=== PATIENT | female | born 1940 | race Caucasian/White ===

== ENCOUNTER 2017-08-13 09:12 | Emergency (ER) | payer MEDICARE, BC, SELFPAY | END 2017-08-13 09:45 | disposition home or self-care (01) | PROVIDERS: Emergency Provider Nurse Practitioner Family; Family Provider Family Medicine; Visit Provider Nurse Practitioner Family | DX: J09.X2 Influenza due to identified novel influenza A virus with other respiratory manifestations (principal) | CPT/HCPCS: 87804; 99201 ==

== ENCOUNTER → 2017-12-14 09:01 | Outpatient (POV) | payer MEDICARE, BC, SELFPAY | PROVIDERS: Visit Provider Dentist | DX: Z00.00 Encounter for general adult medical examination without abnormal findings (principal) ==

== ENCOUNTER → 2018-05-09 12:42 | Outpatient (CLI) | payer MEDICARE, SELFPAY ==
--- NOTE | 2018-05-09 13:10 | XR_ITS ---
XR DEXA axial skeleton HISTORY: ITS.REASON: POST MENOPAUSAL ORDERING PHYSICIAN: Jorgito Nayak MD PATIENT AGE: 78 years COMPARISON: 03/02/2016 FINDINGS: The BMD measured at the Total left femoral neck is 0.661 g/cm squared with a T score of -2.8. This is considered Osteoporotic according to the World Health Organization criteria. Fracture risk is High. Treatment is advised. The L1 L4 density has a T score of -2.7 consistent with osteoporosis and has increased by 7% compared to the previous study. The hip density has increased by 4%. The scanogram images show moderate lumbar scoliosis convex left IMPRESSION: Osteoporosis with high fracture risk. Treatment recommended. Recommend follow-up exam April 2019 placed on these results
== END ==
PROVIDERS: Family Provider Family Medicine; PCP Family Medicine; Visit Provider Family Medicine
DX: Z78.0 Asymptomatic menopausal state (principal); M81.0 Age-related osteoporosis without current pathological fracture
CPT/HCPCS: 77080

== ENCOUNTER → 2019-04-18 12:59 | Outpatient (CLI) | payer MEDICARE, SELFPAY ==
--- NOTE | 2019-04-18 13:04 | XR_ITS ---
PROCEDURE: XR DEXA AXIAL SKELETON CLINICAL HISTORY: OSTEOPAROSIS COMPARISON: No exams were available for comparison FINDINGS: Lumbar spine (L1 through L4), BMD 0.824, T-score -3.0 There is moderate lumbar spine levoscoliosis with degenerative changes causing false elevation of the bone density measurement at L2 and L3 levels. Left hip (Total), BMD 0.676, T-score -2.6 IMPRESSION: Osteoporosis. 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 Dictated by: Tammy Blankenship 05/23/2019 10:00 Electronically signed by Juan Antonio Dixon in [place] 05/23/2019 13:34
== END ==
PROVIDERS: PCP Family Medicine; Visit Provider Family Medicine
DX: M81.0 Age-related osteoporosis without current pathological fracture (principal)
CPT/HCPCS: 77080

== ENCOUNTER 2021-04-17 11:05 | Emergency (ER) | payer MEDICARE, SELFPAY ==
[2021-04-17 11:31] VITALS: BP 137/62; PULSE 58; RESP 18; TEMP 36.8; O2SAT 96; BMI 22.8
--- NOTE | 2021-04-17 11:36 | XR_ITS ---
PROCEDURE INFORMATION: Exam: XR Right Ankle Exam date and time: 04/17/2021 11:36 AM Age: 81 years old Clinical indication: Swelling or effusion of joint; Foot TECHNIQUE: Imaging protocol: XR Right ankle. Views: 3 or more views. COMPARISON: CR XR FOOT RT MIN 3V 04/17/2021 11:34 AM FINDINGS: Bones/joints: Medial and lateral malleoli are normal. Ankle mortise is symmetrical. No fracture. Hindfoot is unremarkable. Tibiotalar joint and subtalar joint normal. Soft tissues: Normal. IMPRESSION: Normal ankle.
--- NOTE | 2021-04-17 11:36 | XR_ITS ---
PROCEDURE INFORMATION: Exam: XR Right Foot Exam date and time: 04/17/2021 11:36 AM Age: 81 years old Clinical indication: Swelling or effusion of joint; Foot TECHNIQUE: Imaging protocol: XR Right foot. Views: 3 or more views. COMPARISON: CR [id number] KNEE-3 [id number]-RT 12/16/2014 12:23 PM FINDINGS: Bones/joints: Hindfoot-midfoot and midfoot-forefoot articulations normal. Metatarsals and phalanges without an acute process. Subtalar and tibiotalar joint normal. Mild degenerative changes at the first metatarsal phalangeal joint. Mild soft tissue swelling about the joint space medially. Soft tissues: See Bones/joints finding. IMPRESSION: Mild degenerative changes at the first metatarsal phalangeal joint. Mild soft tissue swelling about the joint space medially.
--- NOTE | 2021-04-17 12:24 | HMH.EDUTC ---
[facility] [place] Disposition Clinical Impression: Right foot pain Disposition: Home, Self-Care Condition on Discharge: Good Additional Instructions: Rest the extremity, Elevate the extremity as tolerated while you are resting. Take the oral steroids (medrol dose pack) as directed Follow up with Dr. Recinos (podiatry) if you are not getting better pretty fast (2 to 3 days). I put in a referral but you will need to call his office and schedule an appointment. Follow up with your regular doctor. GO TO THE ER FOR ANY WORSENING SYMPTOMS Prescriptions: methylPREDNISolone [Medrol] 4 mg PO DIRECTED 6 Days #21 tab.ds.pk Transmission Status: Received by [id number] Referrals: Julia Yusuf MD [Primary Care Provider] - Meghana Recinos DPM [Staff Physician] - Time of Disposition: 12:31 Medical Decision Making - Medical Records Medical records reviewed: No: I reviewed the patient's medical records. - Rasheed Inquiry Pt receiving controlled substance: No Vital Signs: 04/17/21 11:31 04/17/21 12:33 Temperature 98.2 F 98.2 F Temperature Source Oral Pulse Rate 58 L Pulse Rate [Left] 58 L Respiratory Rate 18 16 Blood Pressure 137/62 Blood Pressure [Right Arm] 137/62 Blood Pressure Mean [Right Arm] 87 02 Sat by Pulse Oximetry 96 - Radiology Data #1 Image(s): Foot/Toes Image Reviewed: Yes I reviewed the patient's radiology image, Yes I have reviewed radiologist's interpretation Preliminary Findings: No Fracture Seen PROCEDURE INFORMATION: Exam: XR Right Foot Exam date and time: 04/17/2021 11:36 AM Age: 81 years old Clinical indication: Swelling or effusion of joint; Foot TECHNIQUE: Imaging protocol: XR Right foot. Views: 3 or more views. COMPARISON: CR [id number] KNEE-3 [id number]-RT 12/16/2014 12:23 PM FINDINGS: Bones/joints: Hindfoot-midfoot and midfoot-forefoot articulations normal. Metatarsals and phalanges without an acute process. Subtalar and tibiotalar joint normal. Mild degenerative changes at the first metatarsal phalangeal joint. Mild soft tissue swelling about the joint space medially. Soft tissues: See Bones/joints finding. IMPRESSION: Mild degenerative changes at the first metatarsal phalangeal joint. Mild soft tissue swelling about the joint space medially. Medical Decision Narrative: She refused the possibility that this could be cellulitis or infection. She refused any antibiotics at this time. She is going to f/u with her pcp if its not getting better with the steroids. [facility] [place] HPI - General Stated complaint: swollen rt foot Time Seen by Provider: 04/17/21 12:24 Mode of Arrival: Ambulatory Source of Information: Patient Limitations: No Limitations Description of Symptoms (Recalled from Triage Doc. by RN): pt went for a walk last monday, afterwards her R foot was swollen and painful. pt has not had any relief. HEENT Symptoms (Recalled from RN notes): No Resp Symptoms (Recalled from RN notes): No Skin Symptoms (Recalled from RN notes): No MS Symptoms (Recalled from RN notes): Yes (R foot swelling and pain) Functional Status (Recalled from RN notes): na - History of Present Illness Provider Complaint: She states that since last night she has had right foot pain and tenderness. She denies any injury. She denies fever or chills. She is currently taking amoxicillin after having some dental work done last week. - Related Data Previous Rx's Medication Instructions Recorded methylPREDNISolone [Medrol] 4 mg PO DIRECTED 6 Days #21 04/17/21 tab.[email or web address] Allergies Allergy/AdvReac Type Severity Reaction Status Date / Time No Known Allergies Allergy Verified 08/31/19 06:29 - Worker's Comp Is this a Worker's Comp case?: No [facility] History - Hepatitis A Screen Drug use history?: No High risk sexual behaviors?: No History of sexually transmitted infecti
[2021-04-17 12:33] VITALS: BP 137/62; PULSE 58; RESP 16; TEMP 36.8
== END 2021-04-17 12:34 | disposition home or self-care (01) ==
PROVIDERS: Emergency Provider Nurse Practitioner Family; PCP Family Medicine
DX: M79.671 Pain in right foot (principal); R60.0 Localized edema
CPT/HCPCS: G0463; 73610; 73630; 99202

== ENCOUNTER → 2021-05-10 15:55 | Outpatient (CLI) | payer MEDICARE, SELFPAY ==
--- NOTE | 2021-05-10 16:03 | XR_ITS ---
PROCEDURE: XR CHEST PORTABLE CLINICAL HISTORY: COVID OUTPATIENT COMPARISON: CR XR CHEST 2V from 08/31/2019 FINDINGS: The cardiomediastinal silhouette and pulmonary vascularity are within normal limits. COPD changes with mild prominence of the interstitium. Slight increased markings in the left mid lung zone suggesting an area of atelectasis with possible perihilar infiltrate. Thoracolumbar scoliosis convex left IMPRESSION: COPD with chronic changes with minimal atelectasis in the left midlung with possible perihilar infiltrate Dictated by: Galo Morel MD 05/10/2021 17:30 Galo Morel MD in [place] 05/10/2021 17:30
[2021-05-10 16:27] LABS: Adenovirus,PCR Not Detected (NotDetected); Bordetella Pertussis Not Detected (NotDetected); Chlamydophila Pneumoniae, PCR Not Detected (NotDetected); Coronavirus 19, PCR Not Detected (NotDetected); Coronavirus 229E Not Detected (NotDetected); Coronavirus NL63 Not Detected (NotDetected); Coronavirus OC43 Not Detected (NotDetected); Coronovirus HKU1,PCR Not Detected (NotDetected); Human Metapneumovirus Not Detected (NotDetected); Influenza A, PCR Not Detected (NotDetected); Influenza AH1, 2009 Not Detected (NotDetected); Influenza AH1, PCR Not Detected (NotDetected); Influenza AH3,PCR Not Detected (NotDetected); Influenza B, PCR Not Detected (NotDetected); Mycoplasma Pneumoniae, PCR Not Detected (NotDetected); Parainfluenza 1, PCR Not Detected (NotDetected); Parainfluenza 2, PCR Not Detected (NotDetected); Parainfluenza 3, PCR Not Detected (NotDetected); Parainfluenza 4, PCR Not Detected (NotDetected); Respiratory Syncytial Virus Not Detected (NotDetected); Rhinovirus/Enterovirus Not Detected (NotDetected)
== END ==
PROVIDERS: PCP Family Medicine; Visit Provider Family Medicine
DX: Z20.822 Contact with and (suspected) exposure to COVID-19 (principal); J45.41 Moderate persistent asthma with (acute) exacerbation
CPT/HCPCS: 71045; 87581; 87632; 87798; C9803; U0003; U0005

== ENCOUNTER → 2021-05-26 09:15 | Outpatient (CLI) | payer MEDICARE, SELFPAY ==
--- NOTE | 2021-05-26 | CA_ITS ---
APPROVED REPORT EXAM: Comprehensive 2D, Doppler, and color-flow Echocardiogram Senior Vice President: Rocio Hernadez CRT Ht: 5 ft 2 in Wt: 129lbs BSA: 1.59 BP: 110/70 mmHg Indications: Shortness of Breath, Fatigue 2D Dimensions LVOT 2.00 cm (M/F) 1.5-2.5 LA Volume 29.70 mL LA Volume Index 18.70 mL/m2 (M/F) 16-34 M-Mode Dimensions RVDd 2.25 cm (0.9-2.6) LA Diam 2.22 cm (1.9-4.0) LVDd 3.71 cm (3.5-5.7) Ao Diam 3.77 cm (2.0-3.7) LVDs 2.43 cm (3.5-5.7) IVSd 1.12 cm (0.6-1.1) PWd 1.00 cm (0.6-1.1) EF (Teich) 64.40% FS 34.50% EDV (Teich) 58.50 mL TAPSE 2.01 (<1.7) ESV (Teich) 20.80 mL LV Diastology E Decel Time 187.00 (160-240 msec) E/A Ratio 0.60 MED E' 5.20 (< 7 cm/sec) MED A' 14.40 cm/s E'/MED E' Ratio 10.77 (>14) LAT E' 6.50 (<10 cm/sec) LAT A' 16.40 cm/s E/LAT E' Ratio 8.62 (>14) Aortic Valve AO Peak GR. 4.30 mmHg Mitral Valve MV A Velocity 93.00 (40-130 cm/s) E/A Ratio 0.60 MV Decel. Time 187.00 (160-240 ms) Pulmonary Valve PV Peak Velocity 126.00 (50-150 cm/s) Tricuspid Valve TR P. Velocity 269.00 cm/s RAP Estimate 10.00 mmHg RVSP 38.90 mmHg Left Ventricle Left atrium is mildly enlarged, left ventricle is normal size, left ventricle wall thickness is upper limit of the normal, septum is sigmoid configuration, visually estimated ejection fraction 55% with no regional wall motion abnormality, grade 1 diastolic dysfunction seen without tissue Doppler evidence of raise left atrial pressure. Right Ventricle Right atrium and right ventricle are normal size and contractility. Aortic Valve Aortic valve is trileaflet, there is no aortic stenosis or aortic insufficiency. Mitral Valve Mitral valve is grossly normal, there is trace mitral regurgitation. Tricuspid Valve Tricuspid grossly normal, there is trace tricuspid regurgitation, calculated right ventricular systolic pressure within normal range. Pulmonic Valve Pulmonic valve is poorly visualized. Great Vessels Aortic root is mildly enlarged measuring 3.8 cm. Inferior vena cava is poorly visualized. Pericardium No significant pericardial effusion noted. Conclusion 1. Mildly enlarged left atrium, normal left ventricular size, visually estimated ejection fraction 55% with no regional wall motion abnormality, grade 1 diastolic dysfunction seen without tissue Doppler evidence of raise left atrial pressure. 2. Mildly enlarged aortic root, there is no aortic stenosis or aortic insufficiency. 3. Trace mitral and tricuspid regurgitation. 4. No significant pericardial effusion noted. 5. Inferior vena cava is poorly visualized. Electronically signed by : Vic Bills MD 05/27/2021 11:33:25
== END ==
PROVIDERS: PCP Family Medicine; Visit Provider Family Medicine
DX: R06.02 Shortness of breath (principal)
CPT/HCPCS: 93306

== ENCOUNTER 2021-09-04 15:51 | Emergency (ER) | payer MEDICARE, SELFPAY ==
[2021-09-04] VITALS (8 sets, daily range): BP systolic 107–119; BP diastolic 55–73; PULSE 78–95; RESP 14–23; TEMP 36.6–36.9; O2SAT 94–98; BMI 22.8
--- NOTE | 2021-09-04 16:04 | XR_ITS ---
PROCEDURE INFORMATION: Exam: XR Chest Exam date and time: 09/04/2021 4:04 PM Age: 81 years old Clinical indication: Shortness of breath; Additional info: SOA TECHNIQUE: Imaging protocol: XR of the chest. Views: 1 view. COMPARISON: CR XR CHEST PORTABLE 05/10/2021 4:28 PM FINDINGS: Lungs: Atelectasis and/or early infiltrative changes noted within both lung bases. Pleural spaces: There is no evidence of pneumothorax. There are no pleural effusions present. Heart/Mediastinum: Unremarkable. No cardiomegaly. Bones/joints: Unremarkable. IMPRESSION: Atelectasis and/or early infiltrative changes noted within both lung bases.
--- NOTE | 2021-09-04 16:04 | ECG_ITS ---
APPROVED REPORT Exam: Resting ECG HR:95 bpm ECG Measurements Heart Rate 95 AXES LA 172 P 35 QRSd 76 QRS -54 QT 320 T 23 QTc 402 Conclusion Normal sinus rhythm Left anterior fascicular block Moderate voltage criteria for LVH, may be normal variant Nonspecific T wave abnormality Abnormal ECG Electronically signed by : Jorgito Smart MD 09/05/2021 08:31:12
[2021-09-04 16:44] LABS: Basophils # 0.1 K/mm3 (0-0.2); Eosinophils # 0.2 K/mm3 (0.0-0.4); Eosinophils % 1.9 % (0.1-12.0); Hematocrit 44.1 % (37.0-47.0); Hemoglobin 14.3 g/dL (12.2-16.2); Lymphocytes # 2.2 K/mm3 (0.7-4.5); Mean Corpuscular HGB Conc 32.5 g/dL (31.8-35.4); Mean Corpuscular Hemoglobin 32.8 pg (27.0-31.2); Mean Platelet Volume 8.3 fl (7.4-10.4); Monocytes # 1.2 K/mm3 (0.1-1.0); Monocytes % 9.5 % (1.7-9.3); Neutrophils # 8.5 K/mm3 (1.8-7.8); Neutrophils % 69.7 % (37.0-80.0); Platelet Count 360 K/mm3 (142-424); Red Blood Count 4.37 M/mm3 (4.20-5.40); Red Cell Distribution Width 13.1 % (11.5-17.5); White Blood Count 12.2 K/mm3 (4.8-10.8)
[2021-09-04 16:50] LABS: Alanine Aminotransferase 19 U/L (12-78); Albumin Level 4.2 g/dl (3.5-5.0); Albumin/Globulin Ratio 1.2 (1.1-1.8); Alkaline Phosphatase 80 U/L (38-126); Anion Gap 10.7 mEq/L (5-15); Aspartate Amino Transferase 33 U/L (14-36); Bilirubin,Total 0.3 mg/dl (0.2-1.3); Blood Urea Nitrogen 15 mg/dl (7-17); Calcium 9.7 mg/dl (8.4-10.2); Carbon Dioxide 28 mmol/L (22.0-30.0); Chloride 100 mmol/L (98-107); Creatinine Clearance Estimated 39 mL/min (50-200); Estimated Glomerular Filt Rate 96 ml/min (>60); GFR (African American) 116 ML/MIN (>60); Globulin 3.4 g/dL (1.3-3.2); Glucose 134 mg/dl (74-100); Potassium 3.7 mmoL/L (3.5-5.1); Sodium 135 mmol/L (136-145); Total Protein,Serum 7.6 g/dl (6.3-8.2)
[2021-09-04 16:50] LABS: Lipase 90 U/L (23-300)
[2021-09-04 17:11] LABS: Troponin I < 0.01 ng/ml (0.00-0.034)
--- NOTE | 2021-09-04 18:10 | HMH.EDGENADL ---
ED Disposition Clinical Impression: Dyspnea on exertion Disposition: Home, Self-Care Condition on Discharge: Good Additional Instructions: Please continue to monitor your condition closely at home. If your condition worsens or any other concerns arise, please return to the emergency department. Otherwise, please follow-up with Dr. Yusuf on an outpatient basis. Referrals: Julia Yusuf MD [Primary Care Provider] - - Critical Care Critical Care Time: No Attestation: On 09/04/21, the high probability of a clinically significant, sudden or life threatening deterioration of the following system(s) required my full and direct attention, intervention and personal management. The time I documented below is in addition to time spent performing reported procedures but includes the following listed in this critical care notation. Medical Decision Making - Medical Records Medical records reviewed: Yes: I reviewed the patient's medical records. - Rasheed Inquiry Pt receiving controlled substance: No Vital Signs: 09/04/21 15:52 09/04/21 17:13 09/04/21 17:30 Temperature 98 F Temperature Source Oral Pulse Rate 88 82 Pulse Rate [Radial] 78 Respiratory Rate 16 16 15 Blood Pressure 111/63 108/60 L Blood Pressure [Right Arm] 119/73 Blood Pressure Mean 75 79 Blood Pressure Mean [Right Arm] 88 02 Sat by Pulse Oximetry 98 96 96 Oxygen Delivery Method Room Air 09/04/21 18:00 09/04/21 18:30 09/04/21 19:00 Temperature Temperature Source Pulse Rate 83 80 85 Pulse Rate [Radial] Respiratory Rate 16 18 14 Blood Pressure 111/61 107/55 L 118/66 Blood Pressure [Right Arm] Blood Pressure Mean 72 68 Blood Pressure Mean [Right Arm] 02 Sat by Pulse Oximetry 96 95 94 L Oxygen Delivery Method Room Air 09/04/21 19:30 Temperature Temperature Source Pulse Rate 90 Pulse Rate [Radial] Respiratory Rate 23 Blood Pressure 115/61 Blood Pressure [Right Arm] Blood Pressure Mean Blood Pressure Mean [Right Arm] 02 Sat by Pulse Oximetry 94 L Oxygen Delivery Method Room Air - Lab Data Lab results reviewed: Yes: I reviewed the patient's lab results. Lab Results 09/04/21 15:47: Lipase 90 09/04/21 15:59: WBC 12.2 H, RBC 4.37, Hgb 14.3, Hct 44.1, MCV 101.0 H, MCH 32.8 H, MCHC 32.5, RDW 13.1, Plt Count 360, MPV 8.3, Neut % (Auto) 69.7, Lymph % (Auto) 18.0, L[place]kin % (Auto) 9.5 H, Eos % (Auto) 1.9, Baso % (Auto) 1.0, Neut # (Auto) 8.5 H, Lymph # (Auto) 2.2, L[place]kin # (Auto) 1.2 H, Eos # (Auto) 0.2, Baso # (Auto) 0.1 09/04/21 15:59: Sodium 135 L, Potassium 3.7, Chloride 100, Carbon Dioxide 28, Anion Gap 10.7, BUN 15, Creatinine 0.60, Estimated Creat Clear 39, Estimated GFR 96, Est GFR ( Amer) 116, Glucose 134 H, Calcium 9.7, Total Bilirubin 0.3, AST 33, ALT 19, Alkaline Phosphatase 80, Troponin I < 0.01, Total Protein 7.6, Albumin 4.2, Globulin 3.4 H, Albumin/Globulin Ratio 1.2 09/04/21 15:59: D-Dimer 0.57 H 09/04/21 15:59: NT-Pro-B Natriuret Pep 42.4 Result diagrams: 09/04/21 15:59 09/04/21 15:59 Orders (Tests/Meds): ED MEDICATIONS Discontinued Medications Generic Name Dose Route Start Last Admin Trade Name Freq PRN Reason Stop Dose Admin Morphine Sulfate 4 mg 09/04/21 16:12 09/04/21 16:36 Morphine 8mg/Ml Syringe IV 09/04/21 16:13 Not Given ONCE ONE Ondansetron HCl 4 mg 09/04/21 16:13 09/04/21 16:36 Ondansetron 4mg/2ml Vial IV 09/04/21 16:14 Not Given ONCE ONE ORDERS Category Date Time Status Rapid PCR Covid and Flu A/B Stat Lab 09/04/21 19:43 Ordered Troponin I Q3H Lab 09/04/21 17:38 Received Troponin I Q3H Lab 09/04/21 22:15 Ordered Medical Decision Narrative: Patient is an 81-year-old female presenting with a chief complaint of dyspnea on exertion for the past several months and tachycardia. Differential diagnosis includes, but is not limited to, COVID-19, pulmonary embolus, pneumonia, ACS, CHF, pulmonary hypertension. Initial exam, p
[2021-09-04 18:33] LABS: D-Dimer 0.57 ug/mL (0.0-0.5)
[2021-09-04 18:38] LABS: NT Pro Brain Natriuretic Pep. 42.4 pg/mL (0-450)
--- NOTE | 2021-09-04 18:46 | PC.NURSE ---
PT UPDATED ON PLAN OF CARE
--- NOTE | 2021-09-04 19:47 | PC.NURSE ---
Pt refused nasal swab stating I've heard of to many false-negatives and false-positives and I don't think I have COVID. This RN explained to pt that MD requested a swab but she could not be forced to be swabbed although it is recommended.
[2021-09-04 20:32] LABS: Troponin I < 0.01 ng/ml (0.00-0.034)
== END 2021-09-04 20:20 | disposition home or self-care (01) ==
PROVIDERS: Emergency Provider Emergency Medicine; PCP Family Medicine
DX: J06.9 Acute upper respiratory infection, unspecified (principal)
CPT/HCPCS: 36415; 71045; 80053; 83690; 83880; 84484; 85025; 85378; 93005; 99283

== ENCOUNTER → 2021-09-28 10:19 | Outpatient (CLI) | payer MEDICARE, SELFPAY ==
--- NOTE | 2021-09-28 10:27 | XR_ITS ---
FINAL REPORT CLINICAL HISTORY: COVID TESTING COMPARISON: September 04, 2021 FINDINGS: The heart size is normal. The mediastinum is normal. There are persistent but partially improved pulmonary opacities likely representing improved pneumonia. There are no pleural effusions. There is no pneumothorax. There is S-shaped scoliosis. IMPRESSION: Persistent but partially improved pulmonary opacities likely representing improved pneumonia. Reviewed, Interpreted and Dictated by Nagi Chand III, MD Transcribed by Joaquin Kovacs Authenticated by Nagi Chand III, MD on 09/28/2021 01:49:54 PM [facility]
== END ==
PROVIDERS: PCP Family Medicine; Visit Provider Family Medicine
DX: U07.1 COVID-19 (principal); J44.1 Chronic obstructive pulmonary disease with (acute) exacerbation
CPT/HCPCS: 71045; C9803; U0003; U0005

== ENCOUNTER → 2021-12-28 13:05 | Outpatient (CLI) | payer MEDICARE, SELFPAY ==
[2021-12-28 13:45] VITALS: PULSE 80; PULSE 87
--- NOTE | 2021-12-28 14:54 | CT_ITS ---
FINAL REPORT TECHNIQUE: Axial images were obtained from the lung apex to the mid abdomen by computed tomography. Coronal reformatted images were obtained. This study was performed with techniques to keep radiation doses as low as reasonably achievable, (ALARA). Individualized dose reduction techniques using automated exposure control or adjustment of mA and/or kV according to the patient''s size were employed. CLINICAL HISTORY: ILD..checking for copd or emphysema FINDINGS: CT CHEST W/O CONTRAST There is no axillary adenopathy. There is no hilar or mediastinal adenopathy. Heart size is normal. There is no pericardial or pleural effusion. Limited images of the upper abdomen are unremarkable. There is moderate, predominantly peripheral, interstitial fibrosis. There is no evidence of bronchiectasis or emphysema. IMPRESSION: Moderate interstitial fibrosis. No evidence of bronchiectasis or emphysema. Reviewed, Interpreted and Dictated by Nagi Chand III, MD Transcribed by Milli Corral Authenticated by Nagi Chand III, MD on 12/28/2021 04:39:15 PM [facility]
== END ==
PROVIDERS: PCP Internal Medicine Adolescent Medicine; Visit Provider Internal Medicine Pulmonary Disease
DX: R06.02 Shortness of breath (principal)
CPT/HCPCS: 71250; 94060; 94618; 94640; 94727; 94729

== ENCOUNTER → 2021-12-30 09:26 | Outpatient (CLI) | payer MEDICARE, SELFPAY ==
--- NOTE | 2021-12-30 09:51 | XR_ITS ---
FINAL REPORT TECHNIQUE: Bone densitometry calculations of the lumbar spine and left hip were obtained. CLINICAL HISTORY: .post menopausal COMPARISON: April 18, 2019 FINDINGS: DEXA BONE DENSITY AXIAL SKELETON Using L1-4, the bone mineral density of the spine is 0.672 g/cm2, corresponding to T-score of -3.4. Previous bone mineral density was 0.824 g/cm2 with a T-score of -3.0. Using the left hip, the bone mineral density of the femoral neck is 0.545 g/cm2, corresponding to a T-score of -3.3. Previous bone mineral density was 0.700 g/cm2 with a T-score of -2.4. NOTE: T-score: Standard deviation compared with peak bone mass of young adult mean. *Following the recommendations of the International Society of Bone Densitometry, classification of hip BMD is based on the lower of two T-scores; total hip or femoral neck. IMPRESSION: Osteoporosis: Lowest T-score is at or below -2.5. This patient's T-score meets the World Health Organization criteria for osteoporosis. Reviewed, Interpreted and Dictated by Nagi Chand III, MD Transcribed by Kendra Weaver Authenticated by Nagi Chand III, MD on 12/30/2021 03:25:[address] [facility]
== END ==
PROVIDERS: PCP Family Medicine; Visit Provider Internal Medicine Adolescent Medicine
DX: M81.0 Age-related osteoporosis without current pathological fracture (principal)
CPT/HCPCS: 77080

== ENCOUNTER → 2022-01-27 12:11 | Outpatient (CLI) | payer MEDICARE, SELFPAY ==
[2022-01-27 14:16] LABS: Uric Acid 4.9 mg/dl (2.5-6.2)
[2022-01-27 14:22] LABS: C-Reactive Protein 1.9 mg/L (0-4)
[2022-01-27 14:28] LABS: Erythrocyte Sedimentation Rate 17 mm/hr (0-30)
[2022-01-28 12:36] LABS: RA Latex Turbid. <10.0 IU/mL (<14.0)
[2022-01-28 13:12] LABS: Anti-Centromere B Antibodies <0.2 AI (0.0-0.9); Anti-DNA (DS) Ab Qn 9 IU/mL (0-9)
[2022-01-28 17:22] LABS: Antinuclear Antibodies, IFA Negative (.); Cytoplasmic (C-ANCA) <1:20 titer (Neg:<1:20); Perinuclear (P-ANCA) <1:20 titer (Neg:<1:20)
[2022-02-01 01:07] LABS: Anti-Cyclic Citrullinated Pept 12 units (0-19)
[2022-02-01 16:22] LABS: Strongyloides IgG Antibody Negative (Negative)
[2022-02-06 21:00] LABS: Aspergillus fumigatus IgG NEGATIVE; Pigeon Serum Abs NEGATIVE
== END ==
PROVIDERS: PCP Internal Medicine Adolescent Medicine; Visit Provider Internal Medicine Pulmonary Disease
DX: J84.9 Interstitial pulmonary disease, unspecified (principal); D72.19 Other eosinophilia; R06.00 Dyspnea, unspecified
CPT/HCPCS: 36415; 84550; 85651; 86038; 86140; 86200; 86225; 86235; 86256; 86331; 86431; 86602; 86606; 86609; 86682

== ENCOUNTER → 2022-04-28 14:22 | Outpatient (CLI) | payer MEDICARE, SELFPAY ==
--- NOTE | 2022-04-28 14:22 | CT_ITS ---
FINAL REPORT TECHNIQUE: Axial images were obtained from the lung apex to the mid abdomen by computed tomography utilizing a high-resolution protocol. Supine inspiration, supine expiration and prone inspiration images were obtained. Coronal reformatted images were obtained. This study was performed with techniques to keep radiation doses as low as reasonably achievable, (ALARA). Individualized dose reduction techniques using automated exposure control or adjustment of mA and/or kV according to the patient's size were employed. CLINICAL HISTORY: soa with exertion , HR CHEST x3 COMPARISON: December 28, 2021 FINDINGS: There is no axillary adenopathy. There is no hilar or mediastinal adenopathy. Heart size is normal. There is a moderate hiatal hernia. There is no pericardial or pleural effusion. Limited images of the upper abdomen are unremarkable. There are moderate peripheral interstitial opacities consistent with moderate interstitial fibrosis. There are patchy peripheral ground-glass opacities, greatest in the upper lobes, which are visually stable. No area of air trapping is identified on the expiration images. The appearance is stable since the prior exam. There is no new abnormality. IMPRESSION: Moderate peripheral fibrosis, stable. Reviewed, Interpreted and Dictated by Nagi Chand III, MD Transcribed by Milli Corral Authenticated and [facility]
== END ==
PROVIDERS: PCP Internal Medicine Adolescent Medicine; Visit Provider Internal Medicine Pulmonary Disease
DX: J84.9 Interstitial pulmonary disease, unspecified (principal); R06.09 Other forms of dyspnea
CPT/HCPCS: 71250

== ENCOUNTER → 2022-05-31 13:17 | Outpatient (POV) | payer MEDICARE, SELFPAY | PROVIDERS: Visit Provider Dermatology | DX: Z00.00 Encounter for general adult medical examination without abnormal findings (principal) ==

== ENCOUNTER → 2022-06-21 14:05 | Outpatient (POV) | payer MEDICARE, SELFPAY | PROVIDERS: Visit Provider Dermatology | DX: Z00.00 Encounter for general adult medical examination without abnormal findings (principal) ==

== ENCOUNTER → 2022-07-27 10:01 | Outpatient (CLI) | payer MEDICARE, SELFPAY | PROVIDERS: PCP Internal Medicine Adolescent Medicine; Visit Provider Internal Medicine Pulmonary Disease | DX: R06.09 Other forms of dyspnea (principal) | CPT/HCPCS: 94060; 94618; 94726; 94729 ==

== ENCOUNTER → 2022-08-04 14:48 | Outpatient (CLI) | payer MEDICARE, SELFPAY ==
--- NOTE | 2022-08-04 15:06 | XR_ITS ---
FINAL REPORT CLINICAL HISTORY: SOB COMPARISON: September 28, 2021 FINDINGS: Two views of the chest were obtained. The heart size and pulmonary vascularity are within normal limits. The mediastinum is normal. There is mild scarring/fibrosis. There is no pneumothorax. The bony thorax is intact. IMPRESSION: Mild scarring/fibrosis. Reviewed, Interpreted and Dictated by Nagi Chand III, MD Transcribed by Milli Corral Authenticated and . [facility]
[2022-08-04 16:07] LABS: Lactate Dehydrogenase 210 U/L (313-618)
[2022-08-04 16:13] LABS: C-Reactive Protein 1.3 mg/L (0-4)
[2022-08-09 15:37] LABS: Strongyloides IgG Antibody Negative (Negative)
[2022-08-10 11:45] LABS: D001-IgE D pteronyssinus <0.10 kU/L (Class 0); D002-IgE D farinae <0.10 kU/L (Class 0); E001-IgE Cat Dander <0.10 kU/L (Class 0); E005-IgE Dog Dander <0.10 kU/L (Class 0); E072-IgE Mouse Urine <0.10 kU/L (Class 0); G002-IgE Bermuda Grass <0.10 kU/L (Class 0); G006-IgE Timothy Grass <0.10 kU/L (Class 0); I006-IgE Cockroach, German <0.10 kU/L (Class 0); Immunoglobulin E, Total 77 IU/mL (6-495); M001-IgE Penicillium chrysogen <0.10 kU/L (Class 0); M002-IgE Cladosporium herbarum <0.10 kU/L (Class 0); M003-IgE Aspergillus fumigatus <0.10 kU/L (Class 0); M006-IgE Alternaria alternata <0.10 kU/L (Class 0); T001-IgE Maple/Box Elder <0.10 kU/L (Class 0); T003-IgE Common Silver Birch <0.10 kU/L (Class 0); T006-IgE Cedar, Mountain 9.37 kU/L (Class IV); T007-IgE Oak, White <0.10 kU/L (Class 0); T008-IgE Elm, American <0.10 kU/L (Class 0); T010-IgE Walnut <0.10 kU/L (Class 0); T011-IgE Maple Leaf Sycamore <0.10 kU/L (Class 0); T014-IgE Cottonwood <0.10 kU/L (Class 0); T015-IgE Ash, White <0.10 kU/L (Class 0); T022-IgE Pecan, Hickory <0.10 kU/L (Class 0); T070-IgE White Mulberry <0.10 kU/L (Class 0); W001-IgE Ragweed, Short <0.10 kU/L (Class 0); W011-IgE Thistle, Russian <0.10 kU/L (Class 0); W014-IgE Pigweed, Common <0.10 kU/L (Class 0); W018-IgE Sheep Sorrel <0.10 kU/L (Class 0)
[2022-08-10 19:34] LABS: Aspergillus flavus Negative (Neg:<1:1); Aspergillus fumigatus Negative (Neg:<1:1); Aspergillus niger Negative (Neg:<1:1); Blastomyces Antibody Negative (Neg:<1:1)
== END ==
PROVIDERS: PCP Internal Medicine Adolescent Medicine; Visit Provider Internal Medicine Pulmonary Disease
DX: J30.9 Allergic rhinitis, unspecified (principal); J84.10 Pulmonary fibrosis, unspecified; J84.89 Other specified interstitial pulmonary diseases; J84.9 Interstitial pulmonary disease, unspecified; D72.19 Other eosinophilia; R06.09 Other forms of dyspnea; R06.02 Shortness of breath
CPT/HCPCS: 36415; 71046; 82785; 83615; 86003; 86140; 86606; 86612; 86682; 87070; 87205

== ENCOUNTER → 2022-08-05 14:24 | Outpatient (CLI) | payer MEDICARE, SELFPAY ==
--- NOTE | 2022-08-05 14:31 | CT_ITS ---
FINAL REPORT TECHNIQUE: Axial imaging of the chest was obtained without contrast. Reformatted images were also obtained and reviewed.This study was performed with techniques to keep radiation doses as low as reasonably achievable, (ALARA). Individualized dose reduction technique using automated exposure control or adjustment of mA and/or kV according to the patient's size were employed. CLINICAL HISTORY: SOA COMPARISON: 04/28/2022 FINDINGS: There is a small hiatal hernia. There is no axillary adenopathy. There is no hilar or mediastinal mass or adenopathy. Heart size is normal. There is no pericardial or pleural effusion. There is moderate, peripheral interstitial fibrosis which is stable from prior exam. Mild right upper lobe and left upper lobe bronchiectasis and ground-glass opacities are also stable. Limited imaging of the upper abdomen demonstrate a small hiatal hernia. IMPRESSION: Stable, moderate fibrosis , ground-glass opacities and bronchiectasis. Reviewed, Interpreted and Dictated by Nagi Chand III, MD Transcribed by Faviola Hagen Authenticated and [facility]
== END ==
PROVIDERS: PCP Internal Medicine Adolescent Medicine; Visit Provider Internal Medicine Pulmonary Disease
DX: J84.89 Other specified interstitial pulmonary diseases (principal); J84.9 Interstitial pulmonary disease, unspecified
CPT/HCPCS: 71250

== ENCOUNTER → 2022-08-16 15:09 | Outpatient (CLI) | payer MEDICARE, SELFPAY | PROVIDERS: Visit Provider Internal Medicine Pulmonary Disease | DX: J84.89 Other specified interstitial pulmonary diseases (principal) | CPT/HCPCS: 87070; 87077; 87205 ==

== ENCOUNTER → 2022-11-04 14:46 | Outpatient (CLI) | payer MEDICARE, SELFPAY ==
--- NOTE | 2022-11-04 14:50 | CA_ITS ---
APPROVED REPORT EXAM: Comprehensive 2D, Doppler, and color-flow Echocardiogram [employer]cery [employer] Associate: Rocio Hernadez CRT Ht: 5 ft 2 in Wt: 126lbs BSA: 1.57 BP: 128/66 mmHg Indications: Shortness of Breath, tachycardia, pulmonary fibrosis 2D Dimensions LVOT 1.67 cm (M/F) 1.5-2.5 M-Mode Dimensions RVDd 1.93 cm (0.9-2.6) LA Diam 3.04 cm (1.9-4.0) LVDd 3.69 cm (3.5-5.7) Ao Diam 3.63 cm (2.0-3.7) LVDs 2.46 cm (3.5-5.7) IVSd 1.28 cm (0.6-1.1) PWd 0.56 cm (0.6-1.1) EF (Teich) 63.00% FS 33.30% EDV (Teich) 57.80 mL TAPSE 1.33 (<1.7) ESV (Teich) 21.40 mL LV Diastology E Decel Time 193.00 (160-240 msec) E/A Ratio 0.63 MED E' 4.30 (< 7 cm/sec) MED A' 7.10 cm/s E'/MED E' Ratio 15.35 (>14) LAT E' 4.60 (<10 cm/sec) LAT A' 20.70 cm/s E/LAT E' Ratio 14.35 (>14) Aortic Valve AO Peak GR. 6.30 mmHg Mitral Valve MV E Max Ronnie. 66.00 (40-130 cm/s) MV A Velocity 104.00 (40-130 cm/s) E/A Ratio 0.63 MV Decel. Time 193.00 (160-240 ms) MV PHT 57.00 ms Pulmonary Valve PV Peak Velocity 169.00 (50-150 cm/s) Tricuspid Valve TR P. Velocity 300.00 cm/s RAP Estimate 10.00 mmHg RVSP 46.10 mmHg Left Ventricle Left atrium is mildly enlarged, left ventricle is normal size mild concentric left ventricular hypertrophy, estimated ejection fraction 55% with no regional wall motion abnormality. Grade 1 diastolic dysfunction seen without tissue Doppler evidence of raise left atrial pressure. Right Ventricle Right atrium and right ventricular normal size and contractility. Aortic Valve Aortic valve is minimally thickened and fibrosed there is no aortic stenosis or aortic insufficiency. Mitral Valve Mitral valve is grossly normal, there is trace mitral regurgitation. Tricuspid Valve Tricuspid grossly normal, there is trace tricuspid regurgitation, tricuspid regurgitation jet plus is inadequate for calculation of the right ventricular systolic pressure. Pulmonic Valve Pulmonic valve is poorly visualized. Great Vessels Aortic root is normal size. Inferior vena cava is normal size with normal inspiratory collapse. Pericardium No significant pericardial effusion noted. There is an extracardiac mass seen in around left atrium this is likely a hiatal hernia. Conclusion 1. Normal left ventricular size mild concentric left ventricular hypertrophy, estimated ejection fraction 55% with no regional wall motion abnormality, grade 1 diastolic dysfunction seen without tissue Doppler evidence of late left atrial pressure. 2. Trace mitral and tricuspid regurgitation. 3. No significant pericardial effusion noted. 4. There is an extracardiac mass seen around left atrium this likely represents a hiatal hernia. 5. Inferior vena cava is normal size with normal inspiratory collapse. Electronically signed by : Vic Bills MD 11/06/2022 10:38:37
== END ==
PROVIDERS: PCP Obstetrics & Gynecology; Visit Provider Internal Medicine Adolescent Medicine
DX: R00.0 Tachycardia, unspecified (principal); R94.31 Abnormal electrocardiogram [ECG] [EKG]
CPT/HCPCS: 93306

== ENCOUNTER → 2022-12-28 08:02 | Outpatient (CLI) | payer MEDICARE, SELFPAY ==
[2022-12-28 09:40] VITALS: PULSE 67; PULSE 73
== END ==
PROVIDERS: PCP Internal Medicine Adolescent Medicine; Visit Provider Internal Medicine Pulmonary Disease
DX: R06.00 Dyspnea, unspecified (principal)
CPT/HCPCS: 94060; 94618; 94640; 94727; 94729

== ENCOUNTER 2023-02-22 14:06 | Emergency (ER) | payer MEDICARE, SELFPAY ==
[2023-02-22 14:06] VITALS: BP 110/71; PULSE 74; RESP 16; TEMP 36.4; O2SAT 96; BMI 21.9
--- NOTE | 2023-02-22 14:27 | XR_ITS ---
FINAL REPORT CLINICAL HISTORY: fall today , wrist pain and swelling FINDINGS: Right wrist Three views were obtained. There is a comminuted, impaction fracture of the distal radius. There is dorsal angulation of the distal fracture fragments. Soft tissue swelling is seen. IMPRESSION: Comminuted, impacted fracture of the distal radius. Reviewed, Interpreted and Dictated by Nagi Chand III, MD Transcribed by Kelly Aguilera Authenticated and [facility]
--- NOTE | 2023-02-22 14:30 | HMH.EDUPEXT ---
Discharge Plan Disposition Patient Disposition: Home, Self-Care Prescriptions Prescriptions: New naproxen 375 mg tablet 375 mg PO BID Qty: 30 0RF No Action cholecalciferol (vitamin D3) 25 mcg (1,000 unit) capsule 25 mcg PO DAILY blue-green algae (Spirulina) 500 mg capsule 380 mg PO DAILY garlic 580 mg capsule 1 mg PO DAILY fluticasone propionate [Flonase Allergy Relief] 50 mcg/actuation spray,suspension 1 spray intranasal BID PRN (Reason: allergy symptoms) 90 Days Qty: 16 3RF Rx Instructions: administer into each nostril Premarin 0.625 mg/gram cream 0.625 mg VAGINAL .twice weekly Qty: 30 4RF Rx Instructions: 1/2 gram twice weekly as directed by aspirin [Adult Low Dose Aspirin] 81 mg tablet,delayed release (DR/EC) 81 mg PO DAILY magnesium glycinate-mag oxide 120 mg magnesium capsule PO .prn multivitamin [Daily Multi-Vitamin] Tablet 1 tab PO DAILY calcium carbonate 500 mg calcium (1,250 mg) tablet 500 mg PO DAILY zinc gluconate 50 mg tablet 50 mg PO DAILY vitamin K2 100 mcg capsule 100 mcg PO DAILY ascorbic acid (vitamin C) 500 mg tablet 500 mg PO DAILY Referrals Follow up/Referrals: Jorgito Smart MD [Primary Care Provider] - See instructions Clinical Impressions Clinical Impression: Closed fracture of right distal radius Discharge ED Provider: Seth Betancourt Upper Extremity HPI General Chief Complaint: Extremity Injury, Upper Stated Complaint: Fall 7/5 RT wrist pain Time Seen by Provider: 02/22/23 14:30 Mode of Arrival: Ambulatory Source of Information: Patient Limitations: No Limitations Description of Symptoms (Recalled from ER Triage Doc. by RN): pt to ED with right wrist pain [place] pt has limited ROM but +PMS. pt denies any head/neck injury of LOC or blood thinners History of Present Illness HPI narrative: 83-year-old white female tripped and fell backwards catching herself with her right hand with immediate pain and deformity of her right wrist. Patient may have osteoporosis but takes no medication and reports she has no medical problems. Her chart indicates some asthma pulmonary fibrosis her medication list is mostly directed and allergies and osteoporosis Related Data Home Medications Medication Instructions Recorded Confirmed aspirin 81 mg tablet,delayed 81 mg PO DAILY 12/08/21 12/28/22 release (Adult Low Dose Aspirin) ascorbic acid (vitamin C) 500 mg 500 mg PO DAILY 05/30/22 12/28/22 tablet calcium carbonate 500 mg calcium 500 mg PO DAILY 05/30/22 12/28/22 (1,250 mg) tablet multivitamin (Daily Multi-Vitamin 1 tab PO DAILY 05/30/22 12/28/22 tablet) vitamin K2 100 mcg capsule 100 mcg PO DAILY 05/30/22 12/28/22 zinc gluconate 50 mg tablet 50 mg PO DAILY 05/30/22 12/28/22 cholecalciferol (vitamin D3) 25 25 mcg PO DAILY 09/26/22 12/28/22 mcg (1,000 unit) capsule blue-green algae (Spirulina) 500 380 mg PO DAILY 12/28/22 12/28/22 mg capsule garlic 580 mg capsule 1 mg PO DAILY 12/28/22 12/28/22 magnesium glycinate-mag oxide mg PO .prn 12/28/22 12/28/22 Previous Rx's Medication Instructions Recorded conjugated estrogens 0.625 mg/gram 0.625 mg vaginal .twice weekly #30 07/27/21 vaginal cream (Premarin) grams fluticasone propionate 50 1 spray intranasal BID PRN allergy 12/28/22 mcg/actuation nasal symptoms 90 days #16 grams spray,suspension (Flonase Allergy Relief) naproxen 375 mg tablet 375 mg PO BID #30 tabs 02/22/23 Allergies Allergy/AdvReac Type Severity Reaction Status Date / Time bee venom protein (honey bee) Allergy Verified 12/28/22 10:25 fluticasone furoate AdvReac Mild Verified 12/28/22 10:25 [From Breo Ellipta] vilanterol AdvReac Mild Verified 12/28/22 10:25 [From Breo Ellipta] [facility] Disclaimer: The information contained in this section may have been updated after the patient
[2023-02-22 15:56] VITALS: BP 118/68; PULSE 81; RESP 17; TEMP 36.8; O2SAT 95
== END 2023-02-22 16:00 | disposition home or self-care (01) ==
PROVIDERS: Emergency Provider Emergency Medicine; PCP Internal Medicine Adolescent Medicine
DX: S52.501A Unspecified fracture of the lower end of right radius, initial encounter for closed fracture (principal); W01.198A Fall on same level from slipping, tripping and stumbling with subsequent striking against other object, initial encounter; J45.30 Mild persistent asthma, uncomplicated
CPT/HCPCS: 73110; 96372; 99283; 99284

== ENCOUNTER → 2023-03-03 12:42 | Outpatient (CLI) | payer MEDICARE, SELFPAY ==
--- NOTE | 2023-03-03 12:52 | XR_ITS ---
FINAL REPORT CLINICAL HISTORY: Rt wrist pain FINDINGS: Right wrist Three views were obtained. There is a comminuted, impacted fracture of the distal radius. Fracture lines extend to the radiocarpal joint. There is a probable small nondisplaced fracture of the ulnar styloid process. There is soft tissue swelling. There are degenerative changes at the radial aspect of the wrist. The bones are osteopenic. IMPRESSION: Comminuted, impacted fracture of the distal radius. Probable small nondisplaced fracture of the ulnar styloid process. Reviewed, Interpreted and Dictated by Nagi Chand III, MD Transcribed by Kelly Aguilera Authenticated and [facility]
== END ==
PROVIDERS: PCP Internal Medicine Adolescent Medicine; Visit Provider Orthopaedic Surgery
DX: S52.501A Unspecified fracture of the lower end of right radius, initial encounter for closed fracture (principal); M25.531 Pain in right wrist
CPT/HCPCS: 73110

== ENCOUNTER → 2023-03-10 10:21 | Outpatient (CLI) | payer MEDICARE, SELFPAY ==
--- NOTE | 2023-03-10 10:27 | XR_ITS ---
FINAL REPORT CLINICAL HISTORY: Rt Wrist Fx COMPARISON: 03/03/2023 FINDINGS: AP, oblique, and lateral views of the right wrist were obtained. Plaster cast obscures detail. There has been no interval change in the comminuted, intra-articular fracture of the distal radius. There continues to be soft tissue edema. IMPRESSION: No change in the distal radial fracture. Reviewed, Interpreted and Dictated by Courtney Segura MD Transcribed by Kelly Aguilera Authenticated and . [facility]
== END ==
PROVIDERS: PCP Internal Medicine Adolescent Medicine; Visit Provider Orthopaedic Surgery
DX: S52.501A Unspecified fracture of the lower end of right radius, initial encounter for closed fracture (principal); M25.531 Pain in right wrist
CPT/HCPCS: 73110

== ENCOUNTER → 2023-03-22 10:30 | Outpatient (CLI) | payer MEDICARE, SELFPAY ==
--- NOTE | 2023-03-22 10:34 | XR_ITS ---
FINAL REPORT CLINICAL HISTORY: fx, fall COMPARISON: 03/10/2023 FINDINGS: RIGHT WRIST SERIES Three views of the right wrist were obtained. There is a comminuted, impacted fracture of the distal radius. The bony alignment is stable. The cast obscures the detail. There is no significant change. The joint spaces are preserved. There is no soft tissue abnormality. IMPRESSION: Comminuted, impacted fracture of the distal radius with stable bony alignment. No significant change is seen. Reviewed, Interpreted and Dictated by Nagi Chand III, MD Transcribed by Ralph Azar Authenticated and [facility]
== END ==
PROVIDERS: PCP Internal Medicine Adolescent Medicine; Visit Provider Orthopaedic Surgery
DX: S52.501A Unspecified fracture of the lower end of right radius, initial encounter for closed fracture (principal); M25.531 Pain in right wrist
CPT/HCPCS: 73110

== ENCOUNTER → 2023-04-07 10:32 | Outpatient (CLI) | payer MEDICARE, SELFPAY ==
--- NOTE | 2023-04-07 10:37 | XR_ITS ---
FINAL REPORT CLINICAL HISTORY: Rt wrist pain COMPARISON: 03/22/2023 FINDINGS: RIGHT WRIST Three views demonstrate a comminuted, impacted subacute fracture of the distal radius. There is dorsal displacement and angulation of the fracture fragments. Bony alignment is stable compared to the prior exam. There are degenerative changes at the first carpometacarpal joint. The visualized joint spaces are normally aligned. The soft tissues are unremarkable. IMPRESSION: Stable alignment distal radius fracture. Degenerative changes without acute bony abnormality. Reviewed, Interpreted and Dictated by Nagi Chand III, MD Transcribed by Kendra Weaver Authenticated and [facility]
== END ==
PROVIDERS: PCP Internal Medicine Adolescent Medicine; Visit Provider Orthopaedic Surgery
DX: S52.501A Unspecified fracture of the lower end of right radius, initial encounter for closed fracture (principal)
CPT/HCPCS: 73110

== ENCOUNTER → 2023-05-05 10:06 | Outpatient (CLI) | payer MEDICARE, SELFPAY ==
--- NOTE | 2023-05-05 10:15 | XR_ITS ---
FINAL REPORT CLINICAL HISTORY: right wrist fx COMPARISON: 04/07/2023 FINDINGS: RIGHT WRIST There is an impaction fracture of the distal radius with dorsal angulation. This was noted on the prior film of April 07, and there is increased callus formation noted since the prior exam. Moderate degenerative changes noted in the right wrist, as well as diffuse osteopenia. The visualized joint spaces are normally aligned. The soft tissues are unremarkable. IMPRESSION: Impaction fracture distal radius with dorsal angulation, and increased callus formation since the prior exam of April 07. Reviewed, Interpreted and Dictated by Nagi Chand III, MD Transcribed by Yvette Bruce Authenticated and [facility]
== END ==
PROVIDERS: PCP Internal Medicine Adolescent Medicine; Visit Provider Orthopaedic Surgery
DX: S52.501A Unspecified fracture of the lower end of right radius, initial encounter for closed fracture (principal); Y99.9 Unspecified external cause status
CPT/HCPCS: 73110

== ENCOUNTER 2023-06-15 14:00 | Outpatient (RCR) | payer MEDICARE, SELFPAY ==
--- NOTE | 2023-05-08 16:16 | HMH.OTOPEV ---
OT Inpatient Evaluation Rehab OT Outpatient Eval Start: 05/08/23 16:03 Freq: Status: Active Protocol: Document 05/08/23 16:03 JANETTECHERRY (Rec: 05/08/23 16:13 BRODYANA [id number]) E-signed By Liss Álvarez, OT Outpatient Therapy Subjective History Subjective History 83 year old female referred to skilled OP OT services to teach HEP to progress to ROM and strengthening. Patient had a recent fall at the [place] resulting in R distal radius fx. Patient reported with PMH: of osteoporosis that she decided she did not want to pursue surgery at this time. Patient reported being very active and wanted to be given an HEP to complete exercises at home and may possibly attend a session within the next 30 days for progress update. New diagnosis of cancer in past 12 No months? Chief Complaint Pain,Weakness Symptom Type Ache Symptoms Relieved By Nothing Symptoms Aggravated By Physical Activity Prior Functional Limitations None Current Functional Limitations Reaching,Lifting,Recreation Activity Symptom Description Constant and Continuous Level of pain today (0-10) 1 Pain scale - at its best (0-10) 1 Pain scale - at its worst (0-10) 6 Wrist/Hand Eval Wrist Range of Motion Right Wrist Extension Active Range of Motion ( 28 degrees) Wrist Flexion Active Range of Motion ( 35 degrees) Wrist Radial Deviation Active Range of 5 Motion (degrees) Wrist Ulnar Deviation Active Range of 25 Motion (degrees) Forearm Supination Active Range of 90 Motion (degrees) Forearm Pronation Active Range of Motion 90 (degrees) Analysis Engineer/Pinch Strength Right Analysis Engineer Strength Measurement (lbs) 10 Left Analysis Engineer Strength Measurement (lbs) 30 QuickDASH Activities Please rate your ability to do the following activities in the last week by selecting the number below the appropriate response. 1. Open a tight or new jar. Unable 2. Do heavy cash posting clerk (e.g., wash Moderate difficulty rivero, floors). 3. Carry a shopping bag or briefcase. Unable 4. Wash your back. Unable 5. Use a knife to cut food. Unable 6. Recreational activities in which you Unable take some force or impact th
== END 2023-06-15 14:05 | disposition home or self-care (01) ==
LOC: OT 14:00
PROVIDERS: PCP Internal Medicine Adolescent Medicine; Visit Provider Orthopaedic Surgery
DX: S52.501A Unspecified fracture of the lower end of right radius, initial encounter for closed fracture (principal)
CPT/HCPCS: 97010; 97014; 97110; 97140; 97164; 97165; G0283

== ENCOUNTER → 2023-07-04 12:55 | Outpatient (CLI) | payer MEDICARE, SELFPAY ==
[2023-07-04 14:10] VITALS: PULSE 68; PULSE 69
== END ==
PROVIDERS: PCP Internal Medicine Adolescent Medicine; Visit Provider Internal Medicine Pulmonary Disease
DX: J44.9 Chronic obstructive pulmonary disease, unspecified (principal)
CPT/HCPCS: 94060; 94618; 94640; 94727; 94729

== ENCOUNTER 2023-08-22 16:44 | Outpatient (CLI) | payer MEDICARE, SELFPAY ==
--- NOTE | 2023-08-22 16:49 | XR_ITS ---
PROCEDURE INFORMATION: Exam: XR Chest Exam date and time: 08/22/2023 4:51 PM Age: 83 years old Clinical indication: Cough and shortness of breath and other: Shallow breathing; Additional info: SOB TECHNIQUE: Imaging protocol: Radiologic exam of the chest. Views: 2 views. COMPARISON: 1. CT HIGH RESOLUTION CHEST 08/05/2022 2:30 PM 2. CR XR CHEST 2V 08/04/2022 3:10 PM FINDINGS: Lungs: Chronic peripheral/basilar interstitial changes in the lower lungs do not appear significantly changed. Small left retrocardiac basilar opacity. Pleural spaces: No pleural effusion. No pneumothorax. Heart/Mediastinum: Hiatal hernia. Bones/joints: No acute abnormality. Scoliosis redemonstrated. IMPRESSION: 1. Small left retrocardiac opacity which could be secondary to patient's known hiatal hernia, atelectasis, or infectious/inflammatory process. 2. Otherwise, stable scarring/fibrosis.
== END 2023-08-22 23:59 ==
PROVIDERS: PCP Internal Medicine Adolescent Medicine; Visit Provider Internal Medicine Pulmonary Disease
DX: R06.02 Shortness of breath (principal); R05.9 Cough, unspecified; B96.89 Other specified bacterial agents as the cause of diseases classified elsewhere
CPT/HCPCS: 71046; 87070; 87205

== ENCOUNTER 2024-08-28 09:54 | Outpatient (CLI) | payer MEDICARE, SELFPAY ==
[2024-08-28 10:45] VITALS: PULSE 77; PULSE 80
[2024-08-28] MEDS: ALBUTEROL 0.083% 2.5 MG/3 ML NEB IH (10:45)
== END 2024-08-28 23:59 | disposition home or self-care (01) ==
LOC: RT 09:58
PROVIDERS: PCP Internal Medicine Adolescent Medicine; Visit Provider Internal Medicine Pulmonary Disease
DX: R06.09 Other forms of dyspnea (principal)
CPT/HCPCS: 94060; 94618; 94640; 94726; 94729; J7613